=== PATIENT | male | born 1995 | race Caucasian/White ===

== ENCOUNTER 2024-01-31 06:50 | Emergency (ER) | payer BC ==
[~2024-01-31] VITALS: Ht 182.9 cm; Wt 136.4 kg
[2024-01-31 07:00] VITALS: TEMP 98.2
[2024-01-31 08:38] VITALS: BP 138/93; PULSE 91
== END 2024-01-31 08:44 | disposition home or self-care (01) ==
LOC: COL.ER 06:50
DX: U07.1 COVID-19 (principal); R05.9 Cough, unspecified; R09.81 Nasal congestion; J34.89 Other specified disorders of nose and nasal sinuses